=== PATIENT | female | born 2000 | race Caucasian/White ===

== ENCOUNTER → 2023-12-10 08:54 | Outpatient (REF) | payer OTHER, SELFPAY ==
[2023-12-10 20:37] LABS: Hepatitis B Surface Antibody Indeterminate
== END ==
LOC: OHS 08:54
PROVIDERS: ATTENDING PHYSICIAN Nurse Practitioner Family
DX: Z23 Encounter for immunization (principal)
CPT/HCPCS: 36415; 86706